=== PATIENT | male | born 1990 | race Caucasian/White ===

== ENCOUNTER 2016-09-30 09:22 | Emergency (ER) | payer OTHER ==
[~2016-09-30] VITALS: Ht 170.2 cm; Wt 97.5 kg
[2016-09-30 09:29] VITALS: BP_SYST 114
[2016-09-30] MEDS ORDERED: DIPH-TET-PERTUS Vaccine 0.5 ML VIAL (ADACEL) I.M. ONE (09:45)
[2016-09-30 10:57] VITALS: BP_SYST 125
== END 2016-09-30 10:57 | disposition home or self-care (01) ==
LOC: EDBD 09:22 → SED 09:22
DX: S13.8XXA Sprain of joints and ligaments of other parts of neck, initial encounter (principal); W11.XXXA Fall on and from ladder, initial encounter; Y93.89 Activity, other specified; Y92.89 Other specified places as the place of occurrence of the external cause; Y99.8 Other external cause status
CPT/HCPCS: 72125; 73600; 90471; 90715; 99284; J7030